=== PATIENT | male | born 1995 | race Two or more races ===

== ENCOUNTER 2024-06-21 13:12 | Emergency (ER) | payer OTHER ==
[~2024-06-21] VITALS: Ht 180.3 cm; Wt 81.6 kg
[2024-06-21] MEDS ORDERED: FAMOTIDINE20 MG PO (14:13)
[2024-06-21] MEDS ORDERED: RINGERS SOLUTION,LACTATED 1,000 ML IV STA (16:36)
[2024-06-21] MEDS ORDERED: PROMETHAZINE HCL 50 MG/ML AMPUL IV STA (16:37)
[2024-06-21] MEDS ORDERED: MEPERIDINE HCL/PF 50 MG/ML VIAL IM STA (16:37)
[2024-06-21] MEDS ORDERED: HYOSCYAMINE SULFATE 0.125 MG TAB.SUBL SL STA (16:37)
[2024-06-21] MEDS ORDERED: PROMETHAZINE HCL 50 MG/ML AMPUL IM ONE (16:46)
[2024-06-21] MEDS ORDERED: HYOSCYAMINE SULFATE 0.125 MG TAB.SUBL ONE (16:46)
[2024-06-21] MEDS ORDERED: DIATRIZOATE MEGLUMINE, SODIUM 30 ML BOTTLE ONE (16:53)
[2024-06-21 17:08] LABS: HEMOGLOBIN 15.7 g/dL (13-16.00); MEAN CELL VOLUME 95.3 fL (80.0-100.00); MEAN CORPUSCULAR HEMOGLOBIN 32.6 pg (27.00-32.0); MEAN CORPUSCULAR HGB CONC 34.2 g/dl (32.0-36.0); PLATELET COUNT 214 K/uL (150-450); RED BLOOD COUNT 4.82 M/uL (4.00-6.00); RED CELL DISTRIBUTION WIDTH 13.9 % (11.5-14.5)
[2024-06-21 17:25] LABS: INR 1.19; PARTIAL THROMBOPLASTIN TIME 30.5 SECONDS (22.0-34.0); PROTHROMBIN TIME 12.3 SECONDS (9.0-11.5)
[2024-06-21 17:42] LABS: CALCIUM 9.9 mg/dL (8.5-10.1); CREATININE SERUM 1.01 mg/dL (0.70-1.30); GFR 88.61; POTASSIUM 4.03 mEq/L (3.5-5.1)
[2024-06-21 18:34] LABS: PH,URINE 6.5 (5.0-8.0); URINE APPEARANCE Clear; URINE BILIRRUBIN Negative (NEGATIVE); URINE BLOOD Negative; URINE COLOR Yellow; URINE GLUCOSE Negative (NEGATIVE); URINE LEUKOCYTE Negative; URINE NITRATE Negative; URINE PROTEIN Negative (NEGATIVE)
[2024-06-21 18:37] LABS: URINE BACTERIA 35.2 uL (0.0-1933); URINE EPITHELIAL CELLS 2.9 uL (0.0-38.8)
[2024-06-21 18:40] LABS: URINE RBC 0.7 uL (0.0-20.8); URINE WBC 0.6 uL (0.0-23.2)
== END 2024-06-21 22:31 | disposition home or self-care (01) ==
LOC: ER 13:14
DX: N30.90 Cystitis, unspecified without hematuria (principal); R10.30 Lower abdominal pain, unspecified

== ENCOUNTER 2024-06-24 14:48 | Emergency (ER) | payer OTHER ==
[~2024-06-24] VITALS: Ht 180.3 cm; Wt 81.6 kg
[~2024-06-24 14:48] MED LIST: FAMOTIDINE20 MG PO
[2024-06-24] MEDS ORDERED: 0.9 % SODIUM CHLORIDE 500 ML IV SCH (16:45)
[2024-06-24] MEDS ORDERED: KETOROLAC TROMETHAMINE 30 MG VIAL IV ONE (16:45)
[2024-06-24] MEDS ORDERED: ONDANSETRON HCL 2 MG/ML VIAL IV ONE (16:45)
[2024-06-24] MEDS ORDERED: FAMOTIDINE/PF 20 MG/2 ML VIAL IV ONE (16:45)
[2024-06-24] MEDS ORDERED: ONDANSETRON HCL 2 MG/ML VIAL ONE (16:49)
[2024-06-24] MEDS ORDERED: FAMOTIDINE/PF 20 MG/2 ML VIAL ONE (16:49)
[2024-06-24] MEDS ORDERED: KETOROLAC TROMETHAMINE 30 MG VIAL ONE (16:49)
[2024-06-24 17:09] LABS: HEMATOCRIT 45.7 % (39.0-48.0); HEMOGLOBIN 15.8 g/dL (13-16.00); MEAN CELL VOLUME 95.8 fL (80.0-100.00); MEAN CORPUSCULAR HEMOGLOBIN 33.2 pg (27.00-32.0); MEAN CORPUSCULAR HGB CONC 34.7 g/dl (32.0-36.0); PLATELET COUNT 211 K/uL (150-450); RED BLOOD COUNT 4.77 M/uL (4.00-6.00); RED CELL DISTRIBUTION WIDTH 13.5 % (11.5-14.5)
[2024-06-24 17:38] LABS: INR 1.17; PARTIAL THROMBOPLASTIN TIME 31.2 SECONDS (22.0-34.0); PROTHROMBIN TIME 12.1 SECONDS (9.0-11.5)
[2024-06-24 17:40] LABS: CREATININE SERUM 1.04 mg/dL (0.70-1.30); GFR 85.67; POTASSIUM 4.08 mEq/L (3.5-5.1)
[2024-06-24] MEDS ORDERED: INTESTINEX680 M1 PO (20:43)
== END 2024-06-24 20:56 | disposition home or self-care (01) ==
LOC: ER 14:48
PROVIDERS: General Practice
DX: R10.31 Right lower quadrant pain (principal); Z88.0 Allergy status to penicillin